=== PATIENT | female | born 1990 | race Caucasian/White ===

== ENCOUNTER 2018-12-12 17:54 | Emergency (ER) | payer MEDICAID ==
--- NOTE | 2018-12-12 18:20 | ER Document Report ---
ED Medical Screen (RME) - General Chief Complaint: Leg Pain Stated Complaint: RIGHT LEG PAIN Time Seen by Provider: 12/12/18 18:18 TRAVEL OUTSIDE OF THE [place] IN LAST 30 DAYS: No - HPI Notes: 12/12/18 18:18 Patient is a 28-year-old female who presents complaining of right lower leg pain near the lateral posterior calf that will radiate proximally and distally with intermittent numbness/tingling into the anterior lower leg towards the ankle that began today. Patient states that she is a smoker and overweight and is concerned about a possible blood clot as she also was in a car for 10 hours 2 days ago. No other injury. Patient states that she was moving and lifting furniture out of a moving truck over the past couple days as well. She has not noticed any redness, bruising, or deformity. Denies drug allergies. Denies any prolonged immobilization, distance travel, recent surgery/trauma, personal cancer history, hormone use, or previous DVT/PE. Denies BROTHERS, fever, neck pain, URI, CP, SOB, Abd pain, or rash. I have treated and performed a rapid initial assessment of this patient. A comprehensive ED assessment and evaluation of the patient, analysis of test results and completion of medical decision making process will be conducted by additional ED providers. PHYSICAL EXAMINATION: GENERAL: Well-appearing, well-nourished and in no acute distress. A&Ox4. Answers questions appropriately. LUNGS: Breath sounds clear to auscultation bilaterally and equal. No wheezes rales or rhonchi. HEART: Regular rate and rhythm without murmurs, rubs, gallops. Extremities: No cyanosis, clubbing, or edema b/l. No obvious lower extremity asymmetry. Positive tenderness to the right posterior lateral calf area. N/v intact distal. Sensation normal to the toes b/l. Pulses 2+ b/l. NEUROLOGICAL: Normal speech, limping gait. PSYCH: Normal mood, normal affect. - Related Data Allergies/Adverse Reactions: No Known Allergies Allergy (Unverified 12/12/18 17:55) Physical Exam - Vital signs Vitals: Temp Pulse Resp BP Pulse Ox 98.4 F 80 20 151/88 H 97 12/12/18 18:04 12/12/18 18:04 12/12/18 18:04 12/12/18 18:04 12/12/18 18:04 Course - Vital Signs Vital signs: Temp Pulse Resp BP Pulse Ox 98.4 F 80 20 151/88 H 97 12/12/18 18:04 12/12/18 18:04 12/12/18 18:04 12/12/18 18:04 12/12/18 18:04
[2018-12-12] MEDS ORDERED: KETOROLAC TROMETHAMINE INJ/PF 30 MG/1 ML SDV IM ONE (18:46)
--- NOTE | 2018-12-12 18:48 | ER Document Report ---
ED Extremity Problem, Lower - General Chief Complaint: Leg Pain Stated Complaint: RIGHT LEG PAIN Time Seen by Provider: 12/12/18 18:18 Mode of Arrival: Ambulatory Information source: Patient TRAVEL OUTSIDE OF THE [place] IN LAST 30 DAYS: No - HPI Patient complains to provider of: Pain Location: Leg Notes: Patient here with complaints of right leg pain. The patient states he recently drove here from [place] 10 hours in a moving truck. States that earlier today she had a sudden pain in the right lateral calf area. Pain was worse when she would raise up her right toes. States that the pain is now gone up to her right buttocks. She complains of some tingling to the lateral aspect of her right lower leg as well. No trauma or injury. No swelling. No fever. She is a smoker, is not on control, denies history of cancer, denies history of DVT or PE. No fever or redness. No nausea, vomiting, diarrhea. No chest pain or shortness of breath. No rash. Pain is constant, moderate, worse with movement, better with rest. No other specific complaints at this time. - Related Data Allergies/Adverse Reactions: No Known Allergies Allergy (Unverified 12/12/18 17:55) Past Medical History - Social History Smoking Status: Current Every Day Smoker Chew tobacco use (# tins/day): No Frequency of alcohol use: Social Drug Abuse: None Family History: Reviewed & Not Pertinent Patient has suicidal ideation: No Patient has homicidal ideation: No Renal/ Medical History: Denies: Hx Peritoneal Dialysis Psychiatric Medical History: Reports: Hx Bipolar Disorder Past Surgical History: Reports: Hx Abdominal Surgery - pancreatic stones, Hx Section - x2, Hx Cholecystectomy, Hx Gynecologic Surgery - d$c, Hx Hysterectomy Review of Systems - Review of Systems -: Yes All other systems reviewed and negative Physical Exam - Vital signs Vitals: Temp Pulse Resp BP Pulse Ox 98.4 F 80 20 151/88 H 97 12/12/18 18:04 12/12/18 18:04 12/12/18 18:04 12/12/18 18:04 12/12/18 18:04 - Notes Notes: GENERAL: alert, cooperative, nontoxic, no distress. HEAD: normocephalic, atraumatic EYES: conjunctiva pink without discharge, no external redness or swelling. EARS: no external swelling, no external redness NOSE: atraumatic, no external swelling MOUTH/THROAT: mucous membranes moist and pink, posterior pharynx without erythema, swelling, exudate. No trismus or drooling. NECK: soft, supple, full range of motion, no meningismus. CHEST: no distress, lungs clear and equal throughout. No wheezing, rales, rhonchi. CARDIAC: regular rate and rhythm, no murmur, normal capillary refill, normal pulses. No peripheral edema noted. ABDOMEN: soft, nontender, no pusatile mass. BACK: No CVA tenderness. No midline tenderness, step-offs or crepitus. EXTREMITIES: full range of motion of all extremities. No redness, no swelling. Mild tenderness to palpation to the right posterior calf, hamstring. NEURO: alert and oriented A&O x 3, no focal deficits, full range of motion of all extremities. 5 out of 5 flexion and extension of the lower extremities bilaterally. Patellar and Achilles deep tendon reflexes are +2 bilaterally. Normal sensation with no saddle anesthesia. Patient can dorsiflex the great toes bilaterally. PYSCH: appropriate mood, affect. Patient is cooperative. SKIN: pink, warm, dry, no rash. Course - Re-evaluation Re-evalutation: 12/12/18 19:51 Patient is nontoxic-appearing with stable vitals. Patient here with complaints of right posterior leg pain. Patient recently drove from [place]. She was concerned that she may have a blood clot in the leg. She denies any chest pain or shortness of breath. There is no redness or swelling. Normal pulse and sensation distally. There is no sign of arterial occlusion. Minimal tenderness to palpation of the posterior leg. Full range of motion. No sign risk of cauda equina, epidural abscess/bleed, discitis, osteomyelitis, pyelonephritis. Venous Doppler of the right lower extremity is negative. Patient likely having some radiculopathy versus sciatica. Patient will be discharged home with [facility]. Instructions to follow-up if not better in the next 3 to 5 days, sooner for any worsening pain, fever, swelling, redness, any further concerns. The patient's emergency department workup and current diagnosis were explained to the patient and or family. Follow-up instructions were provided. Medications if prescribed were discussed. Instructions for when to return to the emergency department including specific worrisome symptoms were discussed with the patient and/or family. - Vital Signs Vital signs: Temp Pulse Resp BP Pulse Ox 98.4 F 80 20 151/88 H 97 12/12/18 18:04 12/12/18 18:04 12/12/18 18:04 12/12/18 18:04 12/12/18 18:04 - Diagnostic Test Radiology reviewed: Image reviewed, Reports reviewed - Negative venous Doppler of the right leg Discharge - Discharge Clinical Impression: Sciatica, right side Condition: Stable Disposition: HOME, SELF-CARE Instructions: Sciatica ([facility]) Additional Instructions: Take medication as prescribed. Drink plenty fluids. Follow-up if not better in 1 week, sooner for worsening pain, fever, numbness, tingling, weakness, difficulty controlling bowels or bladder, persistent vomiting, or for any further concerns. Prescriptions: Naproxen [Naprosyn] 500 mg PO BID #20 tablet Forms: Elevated Blood Pressure, Smoking Cessation Education Referrals: [facility] [Provider Group] - Follow up as needed
--- NOTE | 2018-12-12 19:34 | RADIOLOGY REPORT (SQ) ---
EXAM DESCRIPTION: VENOUS UNILATERAL LOWER COMPLETED DATE/TIME: 12/12/2018 7:27 pm REASON FOR STUDY: Rt leg pain COMPARISON: None. TECHNIQUE: Dynamic and static virgen scale and color images acquired of the right leg venous system. S elected spectral images acquired with additional compression and augmentation maneuvers. The contrala teral common femoral vein and saphenofemoral junction were also imaged. Images stored on PACS. LIMITATIONS: None. FINDINGS: COMMON FEMORAL: Normal phasicity, compression and augmentation. No visualized echogenic ma terial on virgen scale. No defects on color images. FEMORAL: Normal compression and augmentation. No visualized echogenic material on virgen scale. No defe cts on color images. POPLITEAL: Normal compression, augmentation. No visualized echogenic material on virgen scale. No defec ts on color images. CALF VESSELS: Normal compression, augmentation. No visualized echogenic material on virgen scale. No de fects on color images. GSV and SSV: Normal compression, augmentation. No visualized echogenic material on virgen scale. No def ects on color images. ANY DEEP VENOUS INSUFFICIENCY: Not evaluated. ANY EVIDENCE OF POPLITEAL CYST: No. OTHER: No other significant finding. CONTRALATERAL COMMON FEMORAL VEIN AND SAPHENOFEMORAL JUNCTION: Normal phasicity, compression and augmentation. No visualized echogenic material on virgen scale. No de fects on color images. IMPRESSION: NO EVIDENCE DVT OR SVT IN THE RIGHT LEG. TECHNICAL DOCUMENTATION: JOB ID: [id number] [employer]- All Rights Reserved Reading location - IP/workstation name: [email or web address]
[2018-12-12 20:08] VITALS: BP 137/86
== END 2018-12-12 20:08 | disposition home or self-care (01) ==
LOC: ER 17:54
DX: M54.31 Sciatica, right side (principal); F17.200 Nicotine dependence, unspecified, uncomplicated
CPT/HCPCS: 99283; 96372; 93971; J1885

== ENCOUNTER 2019-02-17 12:04 | Emergency (ER) | payer MEDICAID, OTHER ==
[2019-02-17] MEDS ORDERED: TETRACAINE HCL 0.5% OPH SOLN 4 ML ONE (12:37)
--- NOTE | 2019-02-17 12:43 | ER Document Report ---
HPI - HPI Patient complains to provider of: left eye pain Time Seen by Provider: 02/17/19 12:40 Onset: Other Onset/Duration: Gradual, Constant Quality of pain: Achy Severity: Mild Pain Level: 2 Context: 28 Yr old female pt with the listed pmh here for left eye pain/drainage/redness x 3 days. pos glasses or contacts. last TDAP was 2 yrs ago. hx of corneal ulcers/abrasions in the past and it feels similar. pt took out her contacts about 3 days ago when she initially noticed the sx however sx have continued to progress so she came in for eval. she hasn't f/u with an eye doc or put anything in her eyes other than otc refresh eye drops and contact lens solution. she states her contacts were only in there a day before sx started as she takes them out nightly. No eye surgeries. No hx of glaucoma or diabetic retinopathy. No painful eoms. No fb sensation. Hasn't put anything else in the eyes. no other known source or cause. No hx of asthma or diabetes. No recent abx or steroids. Hasn't sought care until now. No recent illness. No fevers, blurry vision or photophobia. denies . No other complaints at this time. otc meds controlling pain. Similar symptoms previously: Yes Recently seen / treated by doctor: No - ROS Systems Reviewed and Negative: Yes All other systems reviewed and negative - to include 10 systems, unless mentioned in the hpi - REPRODUCTIVE Reproductive: DENIES: : - DERM Skin Color: Normal, Alfred Past Medical History - General Information source: Patient - Social History Smoking Status: Current Every Day Smoker Frequency of alcohol use: None Drug Abuse: None Family History: Reviewed & Not Pertinent Patient has suicidal ideation: No Patient has homicidal ideation: No Neurological Medical History: Denies: Hx Cerebrovascular Accident, Hx Migraine, Hx Seizures Endocrine Medical History: Reports: None Renal/ Medical History: Denies: Hx Peritoneal Dialysis Psychiatric Medical History: Reports: Hx Anxiety, Hx Bipolar Disorder, Hx Post Traumatic Stress Disorder Past Surgical History: Reports: Hx Abdominal Surgery - pancreatic stones, Hx Section - x2, Hx Cholecystectomy, Hx Gynecologic Surgery - d$c, Hx Hysterectomy Vertical Provider Document - CONSTITUTIONAL Exam Limitations: No Limitations General Appearance: No Apparent Distress Notes: GENERAL_APPEARANCE: alert, cooperative, mild obvious discomfort. Pleasant, young female, smiling, speaking in full sentences, in no sign of pain or resp distress, lights on in the room. easily sitting up VITALS: reviewed, see vital signs table. HEAD: no swelling\tenderness on the head. Normocephalic, atraumatic, no watkins signs, no raccoon eyes, EARS: normal TMs and canals bilat. No drainage or bleeding. No hemotympanum EYES: PERRL, EOMI without pain, conjunctiva clear, cornea clear, no discharge_from_eyes. No photophobia. No nystagmus. No grossly visible fb. No hyphema. Eyelids wnl. No styes. No ttp or crepitation of the orbits. No sign of orbital or periorbital cellulitis NOSE: no drainage or bleeding. No ttp of the sinuses THROAT: normal pharynx/tonsils. Tongue protrudes midline. Normal speech. No oral lesions, erythema, exudates, or thrush. No swelling. No trouble breathing or swallowing. No decreased moisture. No sign of dental abscess. NECK: no swelling or ttp. No lymphadenopathy. Full rom and full strength. No meningeal signs HEART: RRR LUNGS: CTAB, good air exchange diffusely EXTREMITIES: full rom and full strength in all extremities. Brisk cap refill. Good pulses. Good hand ehs engineer. Normal gait. No swelling or ttp of the extremities. NEURO: cranial nerves 2-12 intact, cerebellar function intact, motor and sensation intact SKIN: warm, dry, good color. No grossly visible overlying skin changes to suggest trauma. ED EYE EXAMS: Pt consented to all eye exams. exams without incident left fluorescein eye exam: anterior chamber is_clear, No flare cells present, cornea of the left eye has a less than 0.1mm small superficial punctate abrasion seen with using ivory lamp after anesthetized with 2 drops of tetracaine. neg hillary sign. no dentritic lesions. right eye not fluoresceined as pt denies any right eye complaints Visual Acuity: 20/30 L, 20/20 R, and 20/25 B- corrected with glasses - INFECTION CONTROL TRAVEL OUTSIDE OF THE [place] IN LAST 30 DAYS: No Course - Re-evaluation Re-evalutation: pt presents with mild left eye pain/redness/drainage x 3 days. pt has a small corneal abrasion on fluorescein exam. no painful eoms. no photophobia. no vision changes. visual acuity as noted and unremakrable. no sign of globe rupture, traumatic iritis, fb, orbital or periorbital cellulitis. pt denies sensation of curtain falling. low suspicion for retinal detachment. tdap is up to date. will dc with ofloxacin eye drops. follow up with eye doctor in 1-2 days. otc meds for pain. advised sx care. cool compresses to eyes. advised no contact lens wear for atleast two weeks or until cleared by eye doc. advised to use new contacts and containers once that time comes as well. return with any worsening symptoms. pt understands and agrees to plan. Vss. Afebrile. Well appearing, satting well on ra. Neurononfocal. On reexam, pt improved with tx listed. remained stable. nontoxic. well appearing. pain controlled. tolerating po. requesting to go home. Documentation achieved through voice recording which my lead to some occasional accidental typographical errors. Extensive efforts have been made to proof read documentation to make sure these are the least as possible. Category Date Time Status Visual Acuity (ED) NOW Care 02/17/19 12:41 Completed Tetracaine HCl/Pf [Tetracaine HCl 0.5% Oph Soln 4 ml] Med 02/17/19 13:22 Discontinued 1 drop OS NOW ONE Tetracaine HCl/Pf [Tetracaine HCl 0.5% Oph Soln 4 ml] Med 02/17/19 12:37 Discontinued 80 drop .ROUTE .STK-MED ONE - Vital Signs Vital signs: Temp Pulse Resp BP Pulse Ox 98.3 F 96 18 145/95 H 94 02/17/19 12:09 02/17/19 12:09 02/17/19 12:02/17/19 12:02/17/19 12:09 Procedures - Eye Procedure Left Alcaine Drops Administered: Yes Fluorescein applied: Left - small superficial puncate abrasion on ivory lamp. neg hillary. no dentritic lesions or other grossly visible abnormalities. Discharge - Discharge Clinical Impression: Corneal abrasion of left eye due to contact lens Condition: Good Disposition: HOME, SELF-CARE Instructions: Corneal Abrasion ([facility]) Additional Instructions: Avoid using your contacts for at least 2 weeks and until cleared by the eye doctor. Follow-up with your eye doctor in 1 to 2 days. Return for any worsening symptoms. use the eye drops as prescribed. tylenol or motrin as needed for any pain. cool compresses to your eyes. use new contacts and accessories once cleared by your eye doctor to resume cyour contacts. Prescriptions: Levofloxacin 1 - 2 drop OS ASDIR 7 Days #1 bottle
[2019-02-17] MEDS ORDERED: TETRACAINE HCL 0.5% OPH SOLN 4 ML OS ONE (13:22)
[2019-02-17 13:26] VITALS: BP 137/89
== END 2019-02-17 13:25 | disposition home or self-care (01) ==
LOC: ER 12:04
DX: H18.822 Corneal disorder due to contact lens, left eye (principal); H57.12 Ocular pain, left eye; F17.200 Nicotine dependence, unspecified, uncomplicated
CPT/HCPCS: 99283

== ENCOUNTER 2019-03-24 21:01 | Emergency (ER) | payer SELFPAY ==
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
[2019-03-24] MEDS ORDERED: METHOCARBAMOL 500 MG TABLET PO ONE (23:26)
[2019-03-24] MEDS ORDERED: HYDROCODONE/ACETAMINOPHEN 5-325 MG TABLET PO ONE (23:26)
[2019-03-24 23:29] VITALS: BP 152/94
== END 2019-03-25 00:08 | disposition home or self-care (01) ==
LOC: ER 21:01
DX: S16.1XXA Strain of muscle, fascia and tendon at neck level, initial encounter (principal); M25.511 Pain in right shoulder; X50.0XXA Overexertion from strenuous movement or load, initial encounter
CPT/HCPCS: 99283